=== PATIENT | male | born 1955 | race Caucasian/White ===

== ENCOUNTER 2017-03-21 19:22 | Emergency (ER) | payer OTHER ==
[2017-03-21 19:23] VITALS: BP 133/79; PULSE 78; RESP 16; TEMP 98.1; O2SAT 100
[2017-03-21 20:53] VITALS: BP 129/77; PULSE 71; RESP 18; O2SAT 98
--- NOTE | 2017-03-21 20:54 | PD ---
HPI Chief Complaint: Abdominal Pain Time Seen by Provider: 20:42 Travel History International Travel<30 days: No Contact w/Intl Traveler<30days: No Traveled to known affect area: No History of Present Illness HPI 61-year-old male complains of right mid abdominal pain. Patient has history of kidney stone in the past. Patient states that he has intermittent right mid abdominal pain for the past 6 months. Patient states that the pain became constant for the past 2 days. Patient states the pain in cramping pain and sharp pain localized to right mid abdomen. Patient states that the pain radiation to the right groin. Patient states that he has occasional hematuria. Patient denies any fever chills. Patient denies any dysuria or frequency. Patient denies any nausea vomiting diarrhea. Patient denies any past medical history. Patient states that he took [id number] medication occasionally. On a scale of 1-10 the pain is a 6. PFSH Past Medical History Kidney Stones: Yes Tetanus Vaccination: Unknown Influenza Vaccination: No Past Surgical History Genitourinary Surgery: Yes (LITHOTRIPSY) Social History Alcohol Use: No Tobacco Use: Yes Substance Use: No Allergies-Medications (Allergen,Severity, Reaction): Coded Allergies: aspirin (Verified Allergy, Unknown, 03/21/17) oxycodone (Verified Allergy, Unknown, 03/21/17) Reported Meds & Prescriptions Reported Meds & Active Scripts Active No Active Prescriptions or Reported Medications Review of Systems General / Constitutional: No: Fever Eyes: No: Visual changes HENT: No: Headaches Cardiovascular: No: Chest Pain or Discomfort Respiratory: No: Shortness of Breath Gastrointestinal: Positive: Abdominal Pain Genitourinary: Positive: Hematuria, No: Dysuria Musculoskeletal: No: Pain Skin: No Rash Neurologic: No: Weakness Psychiatric: No: Depression Endocrine: No: Polydipsia Hematologic/Lymphatic: No: Easy Bruising Physical Exam Narrative GENERAL: Well-nourished, well-developed patient. SKIN: Focused skin assessment warm/dry. HEAD: Normocephalic. EYES: No scleral icterus. No injection or drainage. NECK: Supple, trachea midline. No JVD or lymphadenopathy. CARDIOVASCULAR: Regular rate and rhythm without murmurs, gallops, or rubs. RESPIRATORY: Breath sounds equal bilaterally. No accessory muscle use. GASTROINTESTINAL: Abdomen soft, nondistended. Patient has mild tenderness on palpation right mid abdomen. No rebound tenderness. No mass. MUSCULOSKELETAL: No cyanosis, or edema. BACK: Nontender without obvious deformity. No CVA tenderness. Neurologic exam normal. Data Data Last Documented VS Vital Signs Date Time Temp Pulse Resp B/P (MAP) Pulse Ox O2 Delivery O2 Flow Rate FiO2 03/21/17 21:58 98 Room Air 03/21/17 20:53 71 18 03/21/17 19:23 98.1 Orders Orders Complete Blood Count With Diff (03/21/17 20:47) Comprehensive Metabolic Panel (03/21/17 20:47) Lipase (03/21/17 20:47) Prothrombin Time / Inr (Pt) (03/21/17 20:47) Act Partial Throm Time (Ptt) (03/21/17 20:47) Urinalysis - C+S If Indicated (03/21/17 20:47) Ct Abd/Pel W/O Iv Contrast (03/21/17 20:47) Iv Access Insert/Monitor (03/21/17 20:47) Ecg Monitoring (03/21/17 20:47) Oximetry (03/21/17 20:47) Sodium Chloride 0.9% Flush (Ns Flush) (03/21/17 21:00) Urine Culture (03/21/17 21:20) Labs Laboratory Tests Test 03/21/17 21:20 03/21/17 21:24 Urine Color RED Urine Turbidity HAZY Urine pH 6.0 Urine Specific Roxie 1.025 Urine Protein 100 mg/dL Urine Glucose (UA) NEG mg/dL Urine Ketones TRACE mg/dL Urine Occult Blood LARGE Urine Nitrite NEG Urine Bilirubin NEG Urine Urobilinogen 2.0 MG/DL Urine Leukocyte Esterase MOD Urine RBC /hpf Urine WBC 55 /hpf Urine Calcium Oxalate Crystals FEW /hpf Urine Bacteria FEW /hpf Urine Mucus FEW /lpf Microscopic Urinalysis Comment CULTURE INDICATED White Blood Count 6.6 TH/MM3 Red Blood Count 4.61 MIL/MM3 Hemoglobin 15.8 GM/DL Hematocrit 46.7 % Mean Corpuscular Volume 101.5 FL Mean Corpuscular Hemoglobin 34.2 PG Mean Corpuscular Hemoglobin Concent 33.8 % Red Cell Distribution Width 12.3 % Platelet Count 153 TH/MM3 Mean Platelet Volume 8.6 FL Neutrophils (%) (Auto) 48.5 % Lymphocytes (%) (Auto) 40.9 % Monocytes (%) (Auto) 7.9 % Eosinophils (%) (Auto) 2.5 % Basophils (%) (Auto) 0.2 % Neutrophils # (Auto) 3.2 TH/MM3 Lymphocytes # (Auto) 2.7 TH/MM3 Monocytes # (Auto) 0.5 TH/MM3 Eosinophils # (Auto) 0.2 TH/MM3 Basophils # (Auto) 0.0 TH/MM3 CBC Comment DIFF FINAL Differential Comment Prothrombin Time 10.7 SEC Prothromb Time International Ratio 1.1 RATIO Activated Partial Thromboplast Time 26.9 SEC Blood Urea Nitrogen 16 MG/DL Creatinine 1.01 MG/DL Random Glucose 89 MG/DL Total Protein 7.0 GM/DL Albumin 3.3 GM/DL Calcium Level 8.7 MG/DL Alkaline Phosphatase 72 U/L Aspartate Amino Transf (AST/SGOT) 32 U/L Alanine Aminotransferase (ALT/SGPT) 15 U/L Total Bilirubin 0.4 MG/DL Sodium Level 142 MEQ/L Potassium Level 4.3 MEQ/L Chloride Level 109 MEQ/L Carbon Dioxide Level 27.8 MEQ/L Anion Gap 5 MEQ/L Estimat Glomerular Filtration Rate 75 ML/MIN Lipase 96 U/L MDM Medical Decision Making Medical Screen Exam Complete: Yes Emergency Medical Condition: Yes Interpretation(s) 22:59 PM. Last Impressions Abdomen/Pelvis CT 03/21/172046 Signed Impressions: Service Date/Time: February 22:23 - CONCLUSION: Multiple bilateral kidney stones including bilateral renal pelvic stones. Tiny stone in the bladder may be recently passed. See above discussion. Nikhil Dykes MD CBC within normal limit. CMP within normal limit. UA positive for RBC or WBC and bacteria. Differential Diagnosis Differential diagnosis including musculoskeletal, colitis, nephrolithiasis, UTI , pyelonephritis, appendicitis, Epididymitis. Narrative Course 61-year-old male with right mid abdominal pain. History of nephrolithiasis. Bactrim DS one tablet by mouth now. Diagnosis Primary Impression: Nephrolithiasis Additional Impression: UTI (urinary tract infection) Qualified Codes: N30.01 - Acute cystitis with hematuria Patient Instructions: General Instructions Additional Instructions: Take medications as directed. Follow-up with urologist. Return if intractable pain, fever, persistent vomiting. Med/Other Pt SpecificInfo: Prescription(s) given Scripts Sulfamethoxazole-Trimethoprim (Bactrim DS) 800-160 Mg Tab 1 TAB PO BID for Infection, #14 TAB 0 Refills Prov: Edson Smith MD 03/21/17 Tamsulosin (Flomax) 0.4 Mg Cap 0.4 MG PO HS for Manage Prostate Problems, #14 CAP 0 Refills Prov: Edson Smith MD 03/21/17 Disposition: 01 DISCHARGE HOME Condition: Stable Edson Smith MD Mar 21, 2017 20:54
[2017-03-21] MEDS ORDERED: SODIUM CHLORIDE 0.9% FLUSH 10 ML FLUSH IV FLUSH PRN (21:00)
[2017-03-21 21:44] LABS: AUTOMATED NEUTROPHIL # 3.2 TH/MM3 (1.8-7.7); BASOPHIL % 0.2 % (0.0-2.0); EOSINOPHIL # 0.2 TH/MM3 (0-0.4); EOSINOPHIL % 2.5 % (0.0-4.0); HEMATOCRIT 46.7 % (39.0-51.0); HEMOGLOBIN 15.8 GM/DL (13.0-17.0); LYMPH % 40.9 % (9.0-44.0); LYMPHOCYTE # 2.7 TH/MM3 (1.0-4.8); MEAN CELL VOLUME 101.5 FL (80.0-100.0); MEAN CORPUSCULAR HEMOGLOBIN 34.2 PG (27.0-34.0); MEAN CORPUSCULAR HGB CONC 33.8 % (32.0-36.0); MEAN PLATELET VOLUME 8.6 FL (7.0-11.0); MONO % 7.9 % (0.0-8.0); MONOCYTE # 0.5 TH/MM3 (0-0.9); NEUT % 48.5 % (16.0-70.0); PLATELET COUNT 153 TH/MM3 (150-450); RED BLOOD COUNT 4.61 MIL/MM3 (4.50-5.90); RED CELL DISTRIBUTION WIDTH 12.3 % (11.6-17.2); WHITE BLOOD COUNT 6.6 TH/MM3 (4.0-11.0)
[2017-03-21 21:57] LABS: INTERNATIONAL NORMALIZED RATIO 1.1 RATIO; PROTHROMBIN TIME - PATIENT 10.7 SEC (9.8-11.6)
[2017-03-21 21:58] VITALS: O2SAT 98
[2017-03-21 21:59] LABS: BACTERIA, URINE FEW /hpf; BILIRUBIN, URINE NEG (NEG); BLOOD, URINE LARGE (NEG); CALCIUM OXALATE CRYSTALS,URINE FEW /hpf; GLUCOSE,URINE NEG (NEG); KETONE, URINE TRACE mg/dL (NEG); MUCUS URINE FEW /lpf (OCC); NITRITE,URINE NEG (NEG); URINE LEUKOCYTE ESTERASE MOD (NEG)
[2017-03-21 22:00] LABS: URINE COLOR RED (YELLW/STRAW)
[2017-03-21 22:06] LABS: ALT (GPT) 15 U/L (12-78)
[2017-03-21 22:08] LABS: ALKALINE PHOSPHATASE 72 U/L (45-117); TOTAL BILIRUBIN ADULT 0.4 MG/DL (0.2-1.0)
[2017-03-21 22:16] LABS: ALBUMIN 3.3 GM/DL (3.4-5.0); AST (GOT) 32 U/L (15-37); BICARBONATE 27.8 MEQ/L (21.0-32.0); BLOOD UREA NITROGEN 16 MG/DL (7-18); CALCIUM 8.7 MG/DL (8.5-10.1); CHLORIDE 109 MEQ/L (98-107); CREATININE 1.01 MG/DL (0.60-1.30); GLOMERULAR FILTRATION RATE 75 ML/MIN (>89); GLUCOSE,RANDOM 89 MG/DL (74-106); LIPASE 96 U/L (73-393); SODIUM (NA) 142 MEQ/L (136-145)
--- NOTE | 2017-03-21 22:44 | RADRPT ---
EXAM DATE/TIME: 03/21/2017 22:23 [facility] COMPARISON: No previous studies available for comparison. INDICATIONS : Right abdomen pain. Hematuria. ORAL CONTRAST: No oral contrast ingested. RADIATION DOSE: 8.44 CTDIvol (mGy) MEDICAL HISTORY : Renal calculi. SURGICAL HISTORY : None. ENCOUNTER: Initial ACUITY: 3 days PAIN SCALE: 10/10 LOCATION: Right abdomen TECHNIQUE: Volumetric scanning of the abdomen and pelvis was performed. Using automated exposure control and ad justment of the mA and/or kV according to patient size, radiation dose was kept as low as reasonably achievable to obtain optimal diagnostic quality images. DICOM format image data is available electro nically for review and comparison. FINDINGS: LOWER LUNGS: The visualized lower lungs are clear. LIVER: Visualized portions are unremarkable. SPLEEN: Normal size without lesion. PANCREAS: Within normal limits. KIDNEYS: Multiple bilateral kidney stones and there is a probable medullary calcification involving upper mid and lower pole bilaterally. 10 mm stone in the right renal pelvis. 15 mm stone in the left renal pelv is. No definite ureteral stones. Tiny calcification in the dependent posterior left bladder base may be a recently passed stone. ADRENAL GLANDS: Within normal limits. VASCULAR: There is no aortic aneurysm. BOWEL/MESENTERY: The stomach, small bowel, and colon demonstrate no acute abnormality. There is no free intraperitone al air or fluid. ABDOMINAL WALL: Within normal limits. RETROPERITONEUM: There is no lymphadenopathy. BLADDER: See above REPRODUCTIVE: Prostatic calcifications. No pelvic mass or free fluid INGUINAL: There is no lymphadenopathy or hernia. MUSCULOSKELETAL: Within normal limits for patient age. CONCLUSION: Multiple bilateral kidney stones including bilateral renal pelvic stones. Tiny stone in the bladder m ay be recently passed. See above discussion. Nikhil Dykes MD on March 21, 2017 at 22:38 Board Certified Radiologist. This report was verified electronically.
[2017-03-21] MEDS ORDERED: BACT800T5 PO (23:06)
[2017-03-21] MEDS ORDERED: TAMS5CAP PO (23:06)
[2017-03-21] MEDS ORDERED: SULFAMETHOXAZOLE-TRIMETHOPRIM DS 800-160 MG TAB PO ONE (23:15)
== END 2017-03-21 23:23 | disposition home or self-care (01) ==
LOC: NEPC 19:22
DX: N20.0 Calculus of kidney (principal); N30.01 Acute cystitis with hematuria; Z72.0 Tobacco use
CPT/HCPCS: 74176; 80053; 81001; 83690; 85025; 85610; 85730; 87086